=== PATIENT | female | born 1995 | race Caucasian/White ===

== ENCOUNTER 2019-10-01 12:00 | Inpatient (IN) | payer MEDICAID, OTHER ==
[2019-10-03] MEDS ORDERED: METHYLERGONOVINE 0.2 MG/ML 1 ML AMP IM PRN (06:57)
[2019-10-03] MEDS ORDERED: CARBOPROST TROMETHAMINE 250 MCG/ML 1 ML AMP IM PRN (06:57)
[2019-10-03] MEDS ORDERED: TERBUTALINE 1 MG/ML VIAL SQ PRN (06:57)
[2019-10-03] MEDS ORDERED: OXYTOCIN 10 UNIT/ML 1 ML VIAL IM PRN (06:57)
[2019-10-03] MEDS ORDERED: LIDOCAINE 0.5% (PF) 5 MG/ML (50 ML SDV) SQ PRN (06:57)
[2019-10-03] MEDS ORDERED: OXYTOCIN 30 UNITS/500 ML NS 30 UNIT in SALINE 1 500ML.BAG IV SCH (07:00)
[2019-10-03] MEDS: LACTATED RINGERS 1,000 ML IV SCH ×3 (07:21→13:25)
--- NOTE | 2019-10-03 07:22 | P.HPOB ---
History of Present Illness H&P Date: 10/03/19 This is a 24-year-old white female 1 para 0 EDC 10/01/2019 at 40-2/7 weeks' gestation. Patient presents today for induction for postdates . TOBIAS yesterday was within normal limits. Fetus is been active throughout the . Patient is having mild irregular spontaneous contractions. She denies vaginal bleeding or fluid leakage. Past medical history is significant for ADHD, and pilonidal cyst. Past surgical history breast cyst removed, tympanic tubes in the ears. Excision of pilonidal cyst. Current medications vitamins daily, Zofran when necessary. ALLERGIES none known. Family history significant for heart attack and hypertension. Social history patient is single, father of the baby is involved. She works at [employer]. She is a nonsmoker, denies alcohol and drug use. history blood type is O+, rubella status immune. Urine culture, VDRL testing, hepatitis B surface antigen, HIV testing, gonorrhea and chlamydia cultures, urine culture all negative. One-hour Glucola 83. Initial urine drug screen positive for cannabinoids. On exam this is a pleasant young female, 5 foot 3 inches, 230 pounds, blood pressure 135/88 on admission. Vital signs are otherwise stable and she is afebrile. The general exam is within normal limits. Multiple tattoos are noted. Extremities reveal no edema. Cervix is 3 cm dilated, 60-70% effaced, -2 station, vertex presentation. Artificial amniorrhexis reveals clear fluid. Internal scalp lead is applied. heart rate is consistent with reactive NST. Impression: 40-2/7 weeks intrauterine , here for elective induction of labor for postdates. All signs reassuring. Plan: Oxytocin augmentation per hospital protocol. Close maternal and surveillance. Anticipate normal spontaneous vaginal delivery. Analgesic options have been reviewed with the patient in detail. Review of Systems Constitutional: Reports as per HPI Past Medical History Past Surgical History: Breast Surgery Additional Past Surgical History / Comment(s): Excision pilonidal cyst Past Psychological History: ADD/ADHD Medications and Allergies Home Medications Medication Instructions Recorded Confirmed Type No Known Home Medications 10/03/19 10/03/19 History Allergies Allergy/AdvReac Type Severity Reaction Status Date / Time No Known Allergies Allergy Verified 10/03/19 06:56 Exam Intake and Output 10/02/19 10/03/19 10/03/19 22:59 06:59 14:59 Other: Weight 104.326 kg See dictation under HPI please Assessment and Plan Assessment: 40-2/7 weeks intrauterine , here for induction of labor for postdates. All signs reassuring. Plan: Oxytocin per hospital protocol. Analgesic options reviewed. Close maternal and surveillance. Anticipate normal spontaneous vaginal delivery. Time with Patient: Less than 30
[2019-10-03 07:24] LABS: Basophils % (A) 0 %; Eosinophils # (A) 0.1 k/uL (0-0.7); Eosinophils % (A) 1 %; HCT 36.4 % (34.0-46.0); HGB 11.9 gm/dL (11.4-16.0); Lymphocytes # (A) 1.4 k/uL (1.0-4.8); Lymphocytes % (A) 16 %; MCHC 32.8 g/dL (31.0-37.0); MCV 91.5 fL (80.0-100.0); Mean Platelet Volume 8.6; Monocytes # (A) 0.4 k/uL (0-1.0); Monocytes % (A) 5 %; Neutrophils # (A) 6.7 k/uL (1.3-7.7); Neutrophils % (A) 76 %; Platelet Count 254 k/uL (150-450); RBC 3.98 m/uL (3.80-5.40); RDW 13.2 % (11.5-15.5); WBC 8.8 k/uL (3.8-10.6)
[2019-10-03] MEDS ORDERED: fentaNYL (PF) 50 MCG/ML 5 ML AMP ONE (10:45)
[2019-10-03] MEDS ORDERED: SODIUM CHLORIDE 0.9% 100 ML BAG ONE (10:45)
[2019-10-03] MEDS ORDERED: ROPIVACAINE 5MG/ML 20ML VIAL ONE (10:45)
[2019-10-03] MEDS ORDERED: ZOLPIDEM 5 MG TAB PO PRN (16:07)
[2019-10-03] MEDS ORDERED: BENZOCAINE/MENTHOL SPRAY 1 GM/SPRAY AEROSOL TOPICAL PRN (16:07)
[2019-10-03] MEDS ORDERED: diphenhydrAMINE 25 MG CAP PO PRN (16:07)
[2019-10-03] MEDS ORDERED: ACETAMINOPHEN TAB 325 MG TAB PO PRN (16:07)
[2019-10-03] MEDS ORDERED: diphenhydrAMINE 50 MG CAP PO PRN (16:07)
[2019-10-03] MEDS ORDERED: SIMETHICONE 80 MG CHEWABLE PO PRN (16:07)
[2019-10-03] MEDS ORDERED: diphenhydrAMINE 50 MG/ML 1 ML VIAL IVP PRN ×2 (16:07)
[2019-10-03] MEDS ORDERED: LANOLIN CREAM 5 GM TUBE TOPICAL PRN (16:07)
[2019-10-03] MEDS ORDERED: HYDROCORTISONE 2.5% RECTAL CREAM 30 GM TUBE RECTAL PRN (16:07)
--- NOTE | 2019-10-03 16:07 | P.PROBDLV ---
Vaginal Delivery Note - . Vaginal Delivery Note: This is a 24-year-old white female 1 para 0 EDC 10/01/2019 at 40-2/7 weeks' gestation. Patient presented for induction with favorable cervix for postdates . Group B strep cultures negative, blood type O+, rubella status immune. Please see dictated history and physical for details. Artificial amniorrhexis at 0700 revealed clear fluid. Oxytocin was started and titrated per hospital protocol. Epidural was requested and this was placed. heart tones were reassuring throughout the first and second stages of labor. Patient progressed well through the first stage of labor was judged to be completely dilated at 1512 hrs. She was instructed as to the second stage at that time. With excellent maternal expulsive efforts steady station was made. Ultimately the perineal body was prepped and draped in usual sterile fashion. Infant delivered occiput anterior and restituted accordingly. There was no nuchal cord noted. The right or anterior shoulder was gently delivered from underneath the pubic symphysis at which time the oropharynx, nasopharynx, and external nares were all bulb suctioned. Patient was officially delivered of a liveborn female at 1548 hours. Umbilical cord was doubly clamped and ligated, she was handed to waiting nurses for evaluation where scores of 9 and 9 at one and 5 minutes respectively were given. The placenta delivered spontaneously, it was inspected and noted to be intact with trivascular cord at 1552 hours. Perineal body was then redraped. Inspection of the cervix, vagina, perineum, periurethral, and perirectal areas revealed a very small first-degree laceration at 6:00 that was repaired in the usual fashion with a single [id number] suture of 3-0 Vicryl. Fundus is firm and in the midline, symmetric and 18 week size upon completion of delivery. All sponge needle and enhancement counts are correct. Infant's weight 6 lbs. 12 oz. or 3075 g. Patient and her family are allowed to begin the bonding experience in the LDR.
[2019-10-03] MEDS ORDERED: OXYTOCIN 20 UNITS/1000 ML NS 1,000 ML IV SCH (16:15)
[2019-10-03] MEDS: SENNOSIDES-DOCUSATE SODIUM 1 EACH TAB PO SCH (22:40)
[2019-10-03] MEDS: IBUPROFEN 600 MG TAB PO PRN (23:40)
[2019-10-04 06:15] LABS: Basophils % (A) 0 %; Eosinophils # (A) 0.1 k/uL (0-0.7); Eosinophils % (A) 0 %; HCT 34.5 % (34.0-46.0); HGB 11.1 gm/dL (11.4-16.0); Lymphocytes # (A) 1.5 k/uL (1.0-4.8); Lymphocytes % (A) 14 %; MCHC 32.2 g/dL (31.0-37.0); MCV 93.3 fL (80.0-100.0); Mean Platelet Volume 8.5; Monocytes # (A) 0.5 k/uL (0-1.0); Monocytes % (A) 5 %; Neutrophils # (A) 8.8 k/uL (1.3-7.7); Neutrophils % (A) 80 %; Platelet Count 208 k/uL (150-450); RDW 13.1 % (11.5-15.5)
--- NOTE | 2019-10-04 07:17 | P.DS ---
Providers Date of admission: 10/03/19 06:40 Expected date of discharge: 10/04/19 Attending physician: Ying Bryson Primary care physician: Stated None Hospital Course: This is a 24-year-old white female 1 para 0 EDC 10/01/2019 presented at 40-2/7 weeks for induction for postdates . was unremarkable, group B strep cultures negative, blood type O+, rubella status immune. Please see dictated history and physical for details. Artificial amniorrhexis revealed clear fluid. Oxytocin was started and titrated per protocol. Epidural was placed per her request. She went on to deliver vaginally a liveborn female with scores of 9 and 9 at one and 5 minutes respectively. Infant weighed 6 lbs. 12 oz. or 3075 g. There was a small first-degree perineal laceration that was repaired easily, estimated blood loss 250 mL's. Please see dictated delivery note for details. This morning the patient and her infant are doing well. The patient is voiding, and bleeding, passing flatus without difficulty. Vital signs are stable and she is afebrile. Fundus is firm and in the midline, symmetric, 18 week size. Perineal body is clean and dry. Minimal lochia rubra. Breast- feeding is going well, I have given her prescription for a double electric breast pump. Patient is judged to be in very good condition for discharge home. She will follow-up with me in the office in 6 weeks. I have reminded her no intercourse, tampons or douching. She will use [id number] Advil or Aleve, or Motrin as needed for pain. She will continue taking her vitamin daily. We've briefly discussed options for contraception and we will discuss this further in the office. Call with any fevers shakes or chills, foul smelling or copious lochia, with the passage of large blood clots, with any pain not alleviated by [id number] products, or indeed with any concerns. Assessment: Doing very well hospital day #1 Patient Condition at Discharge: Good Plan - Discharge Summary Discharge Rx Participant: No New Discharge Prescriptions: No Action No Known Home Medications Discharge Medication List No Known Home Medications 10/03/19 [History] Follow up Appointment(s)/Referral(s): Ying Bryson MD [STAFF PHYSICIAN] - 6 Weeks Discharge Disposition: HOME SELF-CARE
[2019-10-04] MEDS: SENNOSIDES-DOCUSATE SODIUM 1 EACH TAB PO SCH (08:37)
[2019-10-04] MEDS: IBUPROFEN 600 MG TAB PO PRN (09:14)
[2019-10-04 10:23] VITALS: PULSE 87; RESP 18
[2019-10-04 13:55] VITALS: BP 121/68; TEMP 97.8
== END 2019-10-04 15:58 | disposition home or self-care (01) | DRG 807 ==
LOC: 4FBP 10-03 06:40
PROVIDERS: ADMIT Obstetrics & Gynecology; ATTEND Obstetrics & Gynecology
PROC: 0HQ9XZZ Repair Perineum Skin, External Approach (ICD-10-PCS; principal; 2019-10-03)
PROC: 3E033VJ Introduction of Other Hormone into Peripheral Vein, Percutaneous Approach (ICD-10-PCS; principal; 2019-10-03)
PROC: 00HU33Z Insertion of Infusion Device into Spinal Canal, Percutaneous Approach (ICD-10-PCS; principal; 2019-10-03)
PROC: 10907ZC Drainage of Amniotic Fluid, Therapeutic from Products of Conception, Via Natural or Artificial Opening (ICD-10-PCS; principal; 2019-10-03)
PROC: 10E0XZZ Delivery of Products of Conception, External Approach (ICD-10-PCS; principal; 2019-10-03)
PROC: 3E0R3NZ Introduction of Analgesics, Hypnotics, Sedatives into Spinal Canal, Percutaneous Approach (ICD-10-PCS; principal; 2019-10-03)
DX: O48.0 Post-term pregnancy (principal); Z37.0 Single live birth; O70.0 First degree perineal laceration during delivery; F90.9 Attention-deficit hyperactivity disorder, unspecified type; O99.344 Other mental disorders complicating childbirth; Z3A.40 40 weeks gestation of pregnancy; Z82.49 Family history of ischemic heart disease and other diseases of the circulatory system
CPT/HCPCS: 85025; 86850; 86900; 86901

== ENCOUNTER 2022-05-15 07:17 | Day surgery (SDC) | payer MEDICAID, OTHER ==
[~2022-05-15 07:17] MED LIST: ACETAMINOPHEN TAB 500 MG TAB PO PRN; DEXAMETHASONE SOD PHOSPHATE 4 MG/ML 1 ML VIAL IV ONE; HEPARIN SODIUM,PORCINE/PF 5,000 UNIT/0.5 ML SYRINGE SQ PRN; HYDROmorphone 0.5 MG/0.5 ML SYRINGE IVP PRN; LACTATED RINGERS 1,000 ML IV SCH; SCOPOLAMINE 1 MG/72 HR PATCH TRANSDERM ONE; metroNIDAZOLE-NS PMX 500 MG in SALINE 1 100ML.BAG IVPB PRN
[2022-05-15 07:47] VITALS: RESP 16
[2022-05-15] MEDS: ONDANSETRON 4 MG/2 ML VIAL IVP ONE ×2 (07:53→07:55)
[2022-05-15] MEDS: MIDAZOLAM 2 MG/2 ML VIAL IV PRN ×2 (07:58→08:00)
--- NOTE | 2022-05-15 08:21 | P.GSHP ---
History of Present Illness H&P Date: 05/15/22 Chief Complaint: Recurrent pilonidal cyst 27-year-old female seen in the office in February. Patient with history of numerous episodes of pilonidal disease since the age of 17. She has had multiple incision and drainage. Patient had 2 separate bilateral cyst excisions once with closure and once with healing by secondary intention. Patient has had recurrent symptoms shortly after that last surgery. The area will swell intermittently with purulent fluid and pain. Past Medical History Additional Past Medical History / Comment(s): Pilonidal cysts. History of Any Multi-Drug Resistant Organisms: None Reported Past Surgical History: Breast Surgery, Ear Surgery Additional Past Surgical History / Comment(s): Excisions pilonidal cysts, R breast surgery/to remove skin lesion, bilateral myringotomies/tubes, wisdom teeth extractions Past Anesthesia/Blood Transfusion Reactions: No Reported Reaction Additional Past Anesthesia/Blood Transfusion Reaction / Comment(s): Pt has never received blood. Smoking Status: Never smoker - Past Family History Brother(s) Family Medical History: Seizure Disorder Additional Family Medical History / Comment(s): Brother is from seizure Mother Family Medical History: Cancer Additional Family Medical History / Comment(s): breast cancer cells Medications and Allergies Home Medications Medication Instructions Recorded Confirmed Type Dextroamphetamine/Amphetamine 20 mg PO MOTUWETHFR 05/13/22 05/13/22 History [Adderall] Allergies Allergy/AdvReac Type Severity Reaction Status Date / Time No Known Allergies Allergy Verified 05/13/22 11:14 Surgical - Exam Physical exam: General: Well-developed, well-nourished HEENT: Normocephalic, sclerae nonicteric Abdomen: Nontender, nondistended Extremities: No edema, midline surgical scar upper gluteal cleft, small single sinus opening measuring 3-4 mm at the inferior aspect of the previous scar site, mild tenderness Neuro: Alert and oriented Assessment and Plan (1) Chronic recurrent pilonidal cyst Narrative/Plan: 27-year-old female with recurrent pilonidal cyst. We'll proceed with cholecystectomy at this time. Plan at this time is to proceed with primary closure unless intraoperative findings necessitate closure by secondary intention. Risks of bleeding, infection, recurrence, flap ischemia, need for drain placement, numbness, pain, scarring all reviewed. She understands and wishes to proceed. Current Visit: Yes Status: Acute Code(s): L05.91 - PILONIDAL CYST WITHOUT ABSCESS SNOMED Code(s): 978502884
[2022-05-15] MEDS ORDERED: LIDOCAINE 4% LTA KIT (4 ML) TOPICAL ONE (08:31)
[2022-05-15] MEDS ORDERED: PROPOFOL 10 MG/ML 20 ML VIAL IV ONE (08:31)
[2022-05-15] MEDS ORDERED: SUCCINYLCHOLINE CHLORIDE 200 MG/10 ML VIAL IV ONE (08:31)
[2022-05-15] MEDS ORDERED: MIDAZOLAM 2 MG/2 ML VIAL ONE (08:31)
[2022-05-15] MEDS ORDERED: fentaNYL (PF) 50 MCG/ML 2 ML AMP ONE (08:31)
[2022-05-15] MEDS ORDERED: LIDOCAINE 2% INJ 20 MG/ML (2 ML VIAL) ONE (08:31)
[2022-05-15] MEDS ORDERED: BUPIVACAIN-EPI 0.25%-1:200,000 30 ML VIAL SQ ONE ×2 (08:58→09:18)
[2022-05-15] MEDS ORDERED: METHYLENE BLUE 10 MG/ML (10 ML VIAL) INJ ONE ×2 (08:59)
[2022-05-15] MEDS ORDERED: NALOXONE 0.4 MG/ML 1 ML VIAL IV PRN (09:33)
[2022-05-15] MEDS ORDERED: HYDROcodone/APAP 5-325MG 1 EACH TAB PO PRN (09:33)
[2022-05-15 09:34] VITALS: TEMP 97
--- NOTE | 2022-05-15 09:38 | P.OP ---
Date of Procedure: 05/15/22 Procedure(s) Performed: PREOPERATIVE DIAGNOSIS: Recurrent pilonidal cyst POSTOPERATIVE DIAGNOSIS: Same PROCEDURE: Pilonidal cystectomy SURGEON: Kell PENGL: Minimal ANESTHESIA: General COMPLICATIONS: None OPERATIVE PROCEDURE: Patient was placed prone on the operating table after general anesthesia was achieved. The gluteal crease was prepped and draped in usual sterile fashion after the patient was placed in the prone jackknife position. The patient had a single skin opening with associated scarring from previous intervention. Methylene blue was injected into the sinus opening. An elliptical incision was then made favoring the left side slightly more than the right. subcutaneous tissues were divided using electrocautery. We never did encounter any evidence of infection or blue ink during our dissection and excision of the pilonidal cyst. The defect subcutaneous layer was small enough that I did not feel a drain was necessary. The wound was then irrigated fully with saline. No bleeding was seen. The subcutaneous tissues were reapproximated using interrupted 2-0 Vicryl sutures. The dermal layer was then reapproximated using interrupted 3-0 Vicryl sutures. The skin was then closed using a running 3-0 Monocryl suture. Marcaine solution plain was utilized as local anesthesia. Skin glue was used along the length of the skin closure. A sterile dressing was applied at that time. DISPOSITION: Stable to recovery room
[2022-05-15] MEDS ORDERED: METOCLOPRAMIDE 5 MG/ML 2 ML VIAL IVP ONE (10:04)
[2022-05-15] MEDS ORDERED: HYDROcodone/APAP 5-325MG 1 EACH TAB PO ONE (11:19)
[2022-05-15 11:32] VITALS: BP 99/62; PULSE 64
== END 2022-05-15 11:51 | disposition home or self-care (01) ==
LOC: OR 07:17
PROVIDERS: ATTEND Surgery
DX: L05.91 Pilonidal cyst without abscess (principal); Z98.890 Other specified postprocedural states; Z80.3 Family history of malignant neoplasm of breast
CPT/HCPCS: 81025; 11770; J2250; J0330; J1100; J2765; J0690; J2405; Q9968; J3010; J2704; J1170; J1644; J2001